=== PATIENT | male | born 1980 | race Two or more races ===

== ENCOUNTER 2018-01-31 21:39 | Inpatient (IN) ==
[2018-02-01] MEDS ORDERED: Aluminum/Magnesium/Simethacone Susp 30 ML UDC PO PRN (02:40)
[2018-02-01] MEDS ORDERED: LORazepam 1 MG Tablet PO PRN (02:40)
[2018-02-01] MEDS ORDERED: Acetaminophen 325 MG Tablet PO PRN (02:40)
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
--- NOTE | 2018-02-01 11:43 | P.CON ---
History of Present Illness Service: [facility] Consult date: 02/01/18 Requesting Physician: Sung Saleem Reason for Consult: Liver CA and UTI Primary Care Provider: No Primary Care Physician Chief Complaint: "I just didn't want to go on anymore" History of Present Illness: 37-year-old male with no significant past medical history up until February of last year when he was diagnosed with liver cancer. Patient originally presented to [place] [facility] under a [place] Act as he had been feeling suicidal. He per documentation patient had lost his kids, business and his apartment and was living in his car. He was transferred to [facility] for further psychiatric evaluation. [facility] consulted due to history of liver cancer and UTI. Patient reports his liver cancer was diagnosed in February 2017 when he had been experiencing abdominal pain and after not having any relief with [id number] medications saw his primary care physician. He had an endoscopy with biopsies taken of his liver which showed cancer. He was evaluated by oncology and started on Opdivo however reports that he has not followed up with his oncologist since about April and has also not been taking his Obdivo as prescribed. Patient reports that he just "didn't want to go on anymore". He tells me that he continues to feel this way now and also mentions trying to wrap sheets around the bars in his bathroom. He denies any pain or discomfort at the moment and reports that he just feels "numb". He denies any fevers, chills, vomiting, shortness of breath, cough, chest pain, headache, dizziness or dysuria. Does endorse some nausea earlier today but no vomiting. Patient also complains of bilateral forearm rash itchy from time to time, states this has been ongoing for several months. No new soaps, lotions, creams, medications, denies being around plants, no bug bites. Discussed evaluation by oncologist to help assist with staging and treatment options if possible while he is in psychiatric department. Patient is agreeable and willing to see the oncologist for recommendations of treatment. We will also request medical records from the physician which patient has provided to me, this was discussed with him. Review of Systems All other systems reviewed negative except as stated in HPI PMF - History History Provided By: Patient, Medical Record - Medical History Medical History: Medical History (Last Reviewed 02/01/18 @ 16:06 by Keily Devine) Liver cancer Suicidal ideation - Surgical History Surgical History: Surgical History (Last Reviewed 02/01/18 @ 16:06 by Keily Devine) H/O eye surgery History of cranioplasty - Family History Family History: Family History (Last Updated 02/01/18 @ 19:07 by Keily Devine) Other Dementia Diabetes mellitus Schizophrenia - Tobacco History Second Hand Smoke Exposure: Yes Tobacco Use In Past 30 Days: Yes Smoking Status: Current every day smoker Tobacco Type: Cigarettes - Alcohol History How Often Do You Have a Drink Containing Alcohol: Never - Substance Use History Substance History: No History of Abuse - Travel History Recent Travel in the [place] Within the Last 8 Weeks: No Recent Travel Out of the Country Within the Last 8 Weeks: No - Immunization History Tetanus Immunization: <5 Years Hx Influenza Vaccine This Season: No Medications and Allergies Active Medications: Active Medications Acetaminophen (Tylenol) 650 mg PO Q4H PRN PRN Reason: Pain 1-5 or Temp >101F Al Hydrox/Mg Hydrox/Simethicone (Mag-Al Plus Susp Liq) 30 ml PO Q6H PRN PRN Reason: DYSPEPSIA Al Hydroxide/Mg Hydroxide (Milk Of Magnesia Liq) 30 ml PO Q12H PRN PRN Reason: Mild Constipation Cephalexin Monohydrate (Keflex) 500 mg PO BID [facility] Stop: 02/07/18 21:01 Last Admin: 02/01/18 08:46 Dose: 500 mg Hydroxyzine HCl (Atarax) 50 mg PO Q6H PRN PRN Reason: ANXIETY Melatonin (Melatonin) 5 mg PO HS PRN PRN Reason: INSOMNIA Mirtazapine (Remeron) 15 mg PO HS [facility] Nicotine (Habitrol 21 Mg Patch.24 Hr) 1 patch T-DERMAL DAILY [facility] Last Admin: 02/01/18 08:46 Dose: 1 patch Allergies Allergy/AdvReac Type Severity Reaction Status Date / Time No Known Allergies Allergy Verified 01/31/18 19:27 Home Medications Medication Instructions Recorded Confirmed Type Po Chemo-[facility] 01/31/18 History Physical Exam Vital signs: Vital Signs 01/31/18 22:43 02/01/18 05:40 Temperature 97.8 F 98 F Pulse Rate 87 77 Respiratory Rate 16 18 Blood Pressure 136/82 142/95 H Pulse Oximetry 97 99 Intake & Output 01/31/18 02/01/18 02/01/18 18:59 06:59 18:59 Weight 118.9 kg Other: Weight On Admission 6 kg Narrative: GENERAL: Well nourished, well developed male resting in bed in no acute distress. SKIN: Warm and dry. Bilateral forearm, dorsal aspect with scattered maculopapular erythema, dry with no drainage. HEAD: Atraumatic. Normocephalic. EYES: Pupils equal and round. No scleral icterus. No injection or drainage. ENT: No nasal bleeding or discharge. Mucous membranes pink and moist. NECK: Trachea midline. No JVD. CARDIOVASCULAR: Regular rate and rhythm. RESPIRATORY: No accessory muscle use. Clear to auscultation. Breath sounds equal bilaterally. GASTROINTESTINAL: Abdomen soft, diffused tenderness left side>right, +BS MUSCULOSKELETAL: Extremities without clubbing, cyanosis, or edema. No obvious deformities. NEUROLOGICAL: Awake and alert. No obvious cranial nerve deficits. Motor grossly within normal limits. Five out of 5 muscle strength in the arms and legs. Normal speech. PSYCHIATRIC: Flat affect, appears depressed. Assessment and Plan - Assessment (1) Liver cancer Code(s): C22.9 - Malignant neoplasm of liver, not specified as primary or secondary Status: Acute (2) UTI (urinary tract infection) Code(s): N39.0 - Urinary tract infection, site not specified Status: Acute (3) Rash Code(s): R21 - Rash and other nonspecific skin eruption Status: Acute - Plan 37-year-old male with no significant past medical history up until February of last year when he was diagnosed with liver cancer. Patient originally presented to [place] ED under a [place] Act as he had been feeling suicidal. He per documentation patient had lost his kids, business and his apartment and was living in his car. He was transferred [facility] inpatient psych for further psychiatric evaluation. [facility] consulted due to history of liver cancer and UTI. Depression, suicidal ideation -Patient to be transferred to higher monitoring unit with one-on-one sitter -Started on Remeron at bedtime -Psych following, greatly appreciate assistance Liver cancer -Previously on Opdivo per his oncologist -Unsure of stage, request medical records from [facility] - Consult ecology for further recommendations, greatly appreciate assistance - ASA and ALT mildly elevated, continue to monitor -Patient denies any pain at current moment Urinary tract infection UA+ Ketones and bacteria with culture indicated. -White count improved, afebrile -Continue p.o. Keflex, UA reintubated, follow culture and sensitivity until final Bilateral hand rash -Ongoing for months per patient -Trial of triamcinolone cream DVT prophylaxis-ambulation Thank you kindly for this consultation, will continue to follow along. Discussed Condition With: Patient and nurse.
[2018-02-01 11:56] LABS: Baso # (Auto) 0.1 th/mm3 (0.0-0.2); Baso % (Auto) 0.8 % (0.0-2.0); Eos # (Auto) 0.4 th/mm3 (0.0-0.4); Eos % (Auto) 4.4 % (0.0-4.0); Hematocrit 41.6 % (39.0-51.0); Hemoglobin 13.9 gm/dL (13.0-17.0); Lymph # (Auto) 2.8 th/mm3 (1.0-4.8); Lymph % (Auto) 28.1 % (9.0-44.0); Mean Corpuscular HGB Conc 33.5 % (32.0-36.0); Mean Corpuscular Hemoglobin 29.1 pg (27.0-34.0); Mean Corpuscular Volume 86.8 fL (80.0-100.0); Mean Platelet Volume 8.5 fL (7.0-11.0); Mono # (Auto) 0.6 th/mm3 (0.0-0.9); Mono % (Auto) 5.9 % (0.0-8.0); Neut # (Auto) 6.1 th/mm3 (1.8-7.7); Neut % (Auto) 60.8 % (16.0-70.0); Platelet Count 250 th/mm3 (150-450); Red Blood Count 4.79 mil/mm3 (4.50-5.90); Red Cell Distribution Width 14.5 % (11.6-17.2); White Blood Count 10.1 th/mm3 (4.0-11.0)
[2018-02-01 12:22] LABS: Albumin 3.7 g/dL (3.4-5.0); Anion Gap 8 meq/L (5-15); Aspartate Aminotransferase 38 U/L (15-37); Blood Urea Nitrogen 6 mg/dL (7-18); Calcium 9.1 mg/dL (8.5-10.1); Carbon Dioxide 25.4 meq/L (21.0-32.0); Chloride 105 meq/L (98-107); Glomerular Filtration Rate Greater Than 89 mL/min (>89); Glucose,Random 81 mg/dL (74-106); Potassium 3.7 meq/L (3.5-5.1); Sodium 138 meq/L (136-145)
[2018-02-01 12:24] LABS: Alanine Aminotransferase 94 U/L (12-78)
[2018-02-01 12:33] LABS: Alkaline Phosphatase 58 U/L (45-117); Total Protein 7.8 g/dL (6.4-8.2)
[2018-02-01] MEDS: Mirtazapine 15 MG Tablet PO SCH (20:44)
[2018-02-01] MEDS: Melatonin 5 MG Tablet PO PRN (20:50)
--- NOTE | 2018-02-01 22:36 | MB ---
cc: Cindy Smith MD DATE: 02/01/2018 CHIEF COMPLAINT: History of liver cancer. HISTORY OF PRESENT ILLNESS: Mr. Porter is a 37-year-old gentleman who presented to the hospital under a [place] Act due to suicidal ideations. Oncology service consulted due to a history of liver cancer. The patient reports that approximately 1 year ago, he had a several-month history of progressively worsening abdominal pain. He was evaluated by a hardware design engineer and underwent an EGD and a colonoscopy. He reports that he underwent a biopsy of a mass in his liver and it returned as cancer. He says that he was evaluated by 2 surgeons who reported that he was not an operative candidate and he has had no further oncology followup. He reports that he has seen a surgeon and a hardware design engineer, but it appears that he has not yet established with an oncologist. He reports that he has been on Opdivo; however, he reports that he does not get this through an oncologist, and interestingly, he describes that he takes 4 nivolumab pills a day; however, this is a medicine that is infused once every 2 weeks or once a month. He does not have a good support system. He reports that he does not talk with his brothers. He is and does not have any contact with his children and he feels that he has nothing else left to live for. During my interview, he casually mentioned that he is on isolation with no bed sheets as he had tried to kill himself at our facility even that morning. REVIEW OF SYSTEMS: As above in HPI, all others negative. PAST MEDICAL HISTORY: History of liver mass. PAST SURGICAL HISTORY: 1. Liver biopsy. 2. Eye surgery. FAMILY HISTORY: No known family history of malignancy. SOCIAL HISTORY: The patient reports that he is an active cigarette smoker. He is not interested in quitting at this time. He denies any alcohol or illegal drug use. CURRENT HOSPITAL MEDICATIONS: Include: 1. Hydrocodone. 2. Tylenol. 3. Keflex. 4. Hydroxyzine. 5. Melatonin. 6. Remeron. 7. Nicotine. 8. Triamcinolone cream. LABORATORY STUDIES: White blood cell count 10, hemoglobin 13.9, platelet count 250,000 with normal absolute blood counts. TSH within normal limits. AST and ALT are both slightly elevated at 38 and 94 respectively. Total bilirubin is 0.4. Creatinine is 0.94. VITAL SIGNS: Temperature 99.4, pulse 85, respiratory rate 17, blood pressure 119/86. General: well developed well nourshed in no distress Head: normocephalic, atraumatic Eyes: PERRLA, EOMI no scleral icterus Respiratory: no respiratory distress MSK: full range of motion Neuro: grossly nonfocal Psych: depressed affect ASSESSMENT AND PLAN: History of liver mass, liver cancer. The patient reports that his biopsy was done at [facility] in [place] under the direction of Dr. Mensah. We will obtain these pathology reports. We will also obtain a repeat CT scan of the chest, abdomen and pelvis. The patient reports the last CT imaging was obtained in approximately 02/2017 Inpatient oncology service will continue to follow. MD MALLY Henderson/bryan , 10:02 PM , 10:09 PM LUNA
--- NOTE | 2018-02-02 10:56 | P.PN ---
Subjective Interval history: Follow-up for liver CA and abdominal pain. Patient is seen and examined in 2700 unit resting in bed comfortably, appears to be in no acute distress. He denies any further pain and agrees that pain medication provided relief. Denies any nausea, vomiting, fevers, chills, shortness of breath or dysuria. Complains of one episode of diarrhea early this morning, no blood reported. Physical Exam Vital signs: Vital Signs 02/01/18 18:51 02/01/18 22:40 02/02/18 05:48 Temperature 99.4 F 97.7 F Pulse Rate 85 64 Respiratory Rate Blood Pressure 119/86 109/62 Pulse Oximetry 97 98 Narrative: GENERAL: Well nourished, well developed male resting in bed in no acute distress. SKIN: Warm and dry. Bilateral forearm, dorsal aspect with scattered maculopapular erythema, dry with no drainage, appear improved compared to yesterday. HEAD: Atraumatic. EYES: Pupils equal and round. ENT: No nasal bleeding or discharge. Mucous membranes pink and moist. NECK: Trachea midline. CARDIOVASCULAR: Regular rate and rhythm. RESPIRATORY: No accessory muscle use. Clear to auscultation. Breath sounds equal bilaterally. GASTROINTESTINAL: Abdomen soft, diffused tenderness, positive bowel sounds. MUSCULOSKELETAL: Extremities without clubbing, cyanosis, or edema. No obvious deformities. NEUROLOGICAL: Awake and alert. No obvious cranial nerve deficits. Motor grossly within normal limits. Normal speech. PSYCHIATRIC: Flat affect, appears depressed. Results - Labs CBC & Chem 7: 02/01/18 11:20 02/01/18 11:20 Laboratory Results - last 24 hr 02/01/18 02/01/18 11:20 11:20 WBC 10.1 RBC 4.79 Hgb 13.9 Hct 41.6 MCV 86.8 MCH 29.1 MCHC 33.5 RDW 14.5 Plt Count 250 MPV 8.5 Neut % (Auto) 60.8 Lymph % (Auto) 28.1 [place] % (Auto) 5.9 Eos % (Auto) 4.4 H Baso % (Auto) 0.8 Neut # (Auto) 6.1 Lymph # (Auto) 2.8 [place] # (Auto) 0.6 Eos # (Auto) 0.4 Baso # (Auto) 0.1 WBC Differential . Differential Comment Auto diff final Sodium 138 Potassium 3.7 Chloride 105 Carbon Dioxide 25.4 Anion Gap 8 BUN 6 L Creatinine 0.94 Estimated GFR Greater than 89 Random Glucose 81 Calcium 9.1 Total Bilirubin 0.4 AST 38 H ALT 94 H Alkaline Phosphatase 58 Total Protein 7.8 Albumin 3.7 TSH 1.260 Assessment and Plan - Assessment (1) Liver cancer Code(s): C22.9 - Malignant neoplasm of liver, not specified as primary or secondary Status: Acute (2) UTI (urinary tract infection) Code(s): N39.0 - Urinary tract infection, site not specified Status: Acute (3) Rash Code(s): R21 - Rash and other nonspecific skin eruption Status: Acute - Plan 37-year-old male with no significant past medical history up until February of last year when he was diagnosed with liver cancer. Patient originally presented to [facility] under a [place] as he had been feeling suicidal. He per documentation patient had lost his kids, business and his apartment and was living in his car. He was transferred to [facility] inpatient psych for further psychiatric evaluation. [facility] consulted due to history of liver cancer and UTI. Depression, suicidal ideation -higher monitoring unit with one-on-one sitter -Psych following, greatly appreciate assistance Liver cancer -Previously on Opdivo per his oncologist -Unsure of stage, request medical records from [facility] - Consult oncology for further recommendations, greatly appreciate assistance -Pending abdominal/pelvis and chest CT scan - ASA and ALT mildly elevated, continue to monitor -PRN [place] for pain Urinary tract infection + Group beta strep UA+ Ketones and bacteria with culture indicated. -White count improved, afebrile -Continue p.o. Keflex, denies dysuria -Diarrhea secondary to p.o. Keflex, will add probiotic. Bilateral hand rash -Ongoing for months per patient -Bilateral forearm rash improved, continue triamcinolone cream DVT prophylaxis-ambulation Discussed Condition With: Patient and nursing staff.
--- NOTE | 2018-02-02 11:47 | P.PNPSY ---
Subjective Chief Complaint: Depression, SI Remarks: Patient seen and examined with nurse. Chart reviewed. Patient is eating well. Case discussed with nursing staff. I was notified by the nurse yesterday evening that there was not adequate staffing to provide 1:1 for patient overnight. I spoke with charge nurse to see if any 1:1 was available who could sit with patient, but there was none. I also brought this staffing shortfall to the attention of the chief warden Dr. Awad in a discussion around 6:30pm yesterday evening. Given this issue, patient was placed in a room with direct line of sight from the nursing station and patient was relieved of any linens to reduce ligature risk. The patient passed an uneventful night and has a 1:1 sitter as ordered this morning. On my examination today, the patient remains exceedingly dysphoric and tearful. He is sitting in the corner of his room. He endorses ongoing SI with intent as before. He says that a female peer reminds him of his daughter, and this is distressing for him given his estrangement from his children. No violent or homicidal ideation reported against this peer or others. When I ask how I can help him best, the patient replies that there is nothing I can do "unless you can end me quickly." Tolerating Remeron well without side effects. No acute physical complaints. Vital Signs Temp Pulse Resp BP Pulse Ox 02/02/18 05:48 97.7 F 64 18 109/62 98 02/01/18 22:40 17 02/01/18 18:51 99.4 F 85 17 119/86 97 Labs reviewed. Review of Systems All other systems reviewed negative except as stated in HPI (limitation: poor historian) Mental Status Examination Appearance: Appropriate Consciousness: Alert Orientation: Person, Place (At least) Motor Activity: Other (No abnormal motor movements noted) Speech: Unremarkable Language: Adequate Fund of Knowledge: Adequate Attention and Concentration: Adequate Memory: Unremarkable (Grossly intact on clinical exam) Mood: Other (Dysphoric) Affect: Other (Tearful) Thought Process & Associations: Intact Thought Content: Appropriate Hallucination Type: None Delusion Type: None Suicidal Ideation: Yes Suicidal Plan: Yes Suicidal Intention: Yes Homicidal Ideation: No Homicidal Plan: No Homicidal Intention: No Insight: Fair Judgment: Impulsive Assessment and Plan - Assessment (1) Adjustment disorder with depressed mood Code(s): F43.21 - Adjustment disorder with depressed mood Status: Acute - Plan Plan: Ongoing persistent dysphoria provides support for depressive episode. I will continue Remeron as ordered for now with plans for further titration to effect. Could consider augmentation (e.g. with lithium or antipsychotic). ECT could be considered but may not be feasible as we do not perform this procedure here and patient is without a payer source to allow for transfer to outside hospital where it could be performed. Hospitalist and oncology input noted and appreciated. Continue one-to-one for safety. Counselor to obtain collateral information. Continue other medications and care as ordered. Justification for Continued Inpatient Stay: Impairment in safety. High risk for decompensation in less restrictive environment. Discharge Planning: Pending psychiatric stabilization. Request Healthcare Surrogate/Guardian Advocate?: No
[2018-02-02] MEDS: Diatrizoate Meglum/Diatrizoate Sod Liq 9 ML UDC PO ONE ×2 (12:26→13:35)
--- NOTE | 2018-02-02 17:31 | CT ---
EXAM DATE: 02/02/2018 5:03 PM EDT AGE/SEX: 37 years / Male INDICATIONS: Liver cancer. Evaluate for metastatic disease. CLINICAL DATA: This is the patient's initial encounter. Patient reports that signs and symptoms have been present for 1 day and indicates a pain score of 0/10. MEDICAL/SURGICAL HISTORY: . Liver cancer None. RADIATION DOSE: 7.89 CTDI (mGy) ; Combined studies COMPARISON: [facility] [place], CT ABDOMEN & PELVIS W CONTRAST, 02/02/2018. . TECHNIQUE: Multiple contiguous axial images were obtained through the chest during bolus infusion of 85 ml Omnipaque 350 (iohexol) nonionic water-soluble contrast as a single exam dose. Images were obtained in suspended respiration using multiple row detector helical technique. Using automated exp osure control and adjustment of the mA and/or kV according to patient size, radiation dose was kept a s low as reasonably achievable to obtain optimal diagnostic quality images. DICOM format image data is available electronically for review and comparison. FINDINGS: Gynecomastia. No pleural or pericardial effusions are seen. There is mild hepatic steatosis. There is no adenopathy in the mediastinum or hilar regions. The osseous structures are intact. Review of lung windows demonstrate clear lungs. CONCLUSION: 1. Gynecomastia and hepatic steatosis. 2. No evidence for metastatic disease to the chest. Electronically signed by: Timo Dodge MD 02/02/2018 5:29 PM EDT
--- NOTE | 2018-02-02 17:32 | CT ---
EXAM DATE: 02/02/2018 5:03 PM EDT AGE/SEX: 37 years / Male INDICATIONS: Liver cancer. Evaluate for metastatic disease. CLINICAL DATA: This is the patient's initial encounter. Patient reports that signs and symptoms have been present for 1 day and indicates a pain score of 0/10. MEDICAL/SURGICAL HISTORY: . Liver cancer None. ORAL CONTRAST: Prescribed oral contrast ingested. RADIATION DOSE: 7.89 CTDI (mGy) ; Combined studies COMPARISON: No prior exams available for comparison. TECHNIQUE: Multiple contiguous axial images were obtained through the abdomen and pelvis following b olus infusion of 85 ml Omnipaque 350 (iohexol) nonionic water-soluble contrast as a single exam dos e. Prescribed oral contrast ingested. Using automated exposure control and adjustment of the mA and/ or kV according to patient size, radiation dose was kept as low as reasonably achievable to obtain op timal diagnostic quality images. DICOM format image data is available electronically for review and comparison. FINDINGS: Lung bases are clear. Osseous structures are intact. No pleural or pericardial effusions are seen. Th ere is mild decreased attenuation of the liver parenchyma characteristic of steatosis. A discrete hep atic mass is not visualized. There is more focal fatty infiltration adjacent to the falciform ligamen t. Gallbladder, kidneys, adrenals, spleen, pancreas are unremarkable. Urinary bladder and prostate ar e unremarkable. No evidence of bowel obstruction. CONCLUSION: 1. Fatty liver. 2. No masses are seen. Electronically signed by: Timo Dodge MD 02/02/2018 5:31 PM EDT
--- NOTE | 2018-02-02 18:16 | ECG ---
Date Performed: 02/01/2018 Time Performed: 13:41:22 PTAGE: 37 years EKG: Sinus rhythm NORMAL ECG NO PREVIOUS TRACING DOCTOR: Tolu Rodriguez Interpretating Date/Time 02/02/2018 18:14:29
[2018-02-02] MEDS: Melatonin 5 MG Tablet PO PRN (20:52)
[2018-02-02] MEDS: Lactobacillus Acidophilus/L. Spores Tablet PO SCH (20:52)
[2018-02-02] MEDS: Mirtazapine 15 MG Tablet PO SCH (20:52)
[2018-02-03] MEDS: Lactobacillus Acidophilus/L. Spores Tablet PO SCH ×2 (09:04→20:36)
--- NOTE | 2018-02-03 10:50 | P.PNPSY ---
Subjective Chief Complaint: Depression, SI Remarks: Patient seen and examined with nurse. Chart reviewed. Records from GI clinic reviewed. Case discussed with nursing staff who reports patient seems a little less dysphoric today. Nurse does wonder about a component of symptom exaggeration or secondary gain, perhaps to evade some sort of legal consequence. Nurse notes that patient's friend Henrry did not come to visit last night as planned, although he did make a phone call to patient today. Patient remains on 1:1 for safety. On my exam, patient is calmer and less dysphoric. He is not tearful today. He presents as somewhat entitled with antisocial personality traits. He is able to speak at length and with great interest on financial matters. He does confirm that there is the potential that he could be charged with wire fraud. He endorses ongoing SI as before and demands discharge. No side effects from medications. He complains of poor sleep, and we discuss (among other options) augmenting patient's Remeron with a sedating atypical, but patient prefers a simple hypnotic. I will add Benadryl. No physical complaints. Vital Signs Temp Pulse Resp BP Pulse Ox 02/03/18 06:21 98.4 F 100 H 17 153/89 H 96 02/02/18 20:00 16 02/02/18 16:49 98.8 F 81 18 135/78 97 Intake and Output 02/03/18 02/03/18 02/03/18 06:59 14:59 22:59 Other: Weight 118.9 kg Laboratory Results - last 24 hr 02/03/18 15:26 Sodium 139 Potassium 3.7 Chloride 106 Carbon Dioxide 25.5 Anion Gap 8 BUN 8 Creatinine 1.01 Estimated GFR 84 L Random Glucose 111 H Calcium 8.6 Total Bilirubin 0.2 AST 42 H ALT 107 H Alkaline Phosphatase 65 Total Protein 7.5 Albumin 3.7 Labs reviewed. Fairly stable transaminitis noted. Review of Systems All other systems reviewed negative except as stated in HPI Mental Status Examination Appearance: Appropriate Consciousness: Alert Orientation: Person, Place (At least) Motor Activity: Other (No motoric abnormalities noted ) Speech: Unremarkable Language: Adequate Fund of Knowledge: Adequate Attention and Concentration: Adequate Memory: Unremarkable (Grossly intact on clinical exam) Mood: Other (Dysphoric) Affect: Blunt Thought Process & Associations: Intact Thought Content: Appropriate Hallucination Type: None Delusion Type: None Suicidal Ideation: Yes Suicidal Plan: Yes Suicidal Intention: Yes Homicidal Ideation: No Homicidal Plan: No Homicidal Intention: No Insight: Fair Judgment: Impulsive Assessment and Plan - Assessment (1) Adjustment disorder with depressed mood Code(s): F43.21 - Adjustment disorder with depressed mood Status: Acute - Plan Plan: Underlying diagnosis remains opaque. There is almost certainly some manipulativeness in patient's presentation, and I suspect his insistence on discharge in the setting of ongoing reported SI is in service of firming up his inpatient placement. In context it is clear that the patient knows full well that he cannot be discharged given his reported current psychiatric symptomatology. I will initiate a petition for involuntary psychiatric hospitalization and consult for second opinion. Patient retains capacity to consent for medication. Add Benadryl as needed for sleep. Continue one-to-one for safety. Continue to monitor on the inpatient unit. Counselor to obtain collateral information. Continue other medications and care as ordered. Justification for Continued Inpatient Stay: Monitoring for impairment in safety. High risk for decompensation in less restrictive environment. Discharge Planning: Pending psychiatric stabilization. Request Healthcare Surrogate/Guardian Advocate?: No
--- NOTE | 2018-02-03 14:10 | P.PN ---
Subjective Interval history: Follow-up visit on reported liver cancer and abdominal pain as well as UTI. Patient seen and examined resting in bed with sitter at bedside appears to be in no acute distress. Patient reports that his abdominal pain continues states that it comes and goes. Denies any further nausea, vomiting or diarrhea. Urinating without any dysuria. No fevers, chills, shortness of breath or cough reported. Physical Exam Vital signs: Vital Signs 02/02/18 16:49 02/02/18 20:00 02/03/18 06:21 Temperature 98.8 F 98.4 F Pulse Rate 81 100 H Respiratory Rate Blood Pressure 135/78 153/89 H Pulse Oximetry 97 96 Intake & Output 02/02/18 02/03/18 02/03/18 18:59 06:59 18:59 Weight 118.9 kg Narrative: GENERAL: Well nourished, well developed male resting in bed in no acute distress. SKIN: Warm and dry. Bilateral forearm, dorsal aspect with scattered maculopapular erythema, improving. HEAD: Atraumatic. EYES: Pupils equal and round. ENT: No nasal bleeding or discharge. Mucous membranes pink and moist. NECK: Trachea midline. CARDIOVASCULAR: Regular rate and rhythm. RESPIRATORY: No accessory muscle use. Clear to auscultation. Breath sounds equal bilaterally. GASTROINTESTINAL: Abdomen soft, diffused tenderness, positive bowel sounds. MUSCULOSKELETAL: Extremities without clubbing, cyanosis, or edema. No obvious deformities. NEUROLOGICAL: Awake and alert. No obvious cranial nerve deficits. Motor grossly within normal limits. Normal speech. PSYCHIATRIC: Flat affect, appears depressed. Results - Labs CBC & Chem 7: 02/01/18 11:20 02/01/18 11:20 - Imaging Impressions Abdomen/Pelvis CT 02/02/18 00:00 CONCLUSION: 1. Fatty liver. 2. No masses are seen. Chest CT 02/02/18 00:00 CONCLUSION: 1. Gynecomastia and hepatic steatosis. 2. No evidence for metastatic disease to the chest. Assessment and Plan - Assessment (1) Liver cancer Code(s): C22.9 - Malignant neoplasm of liver, not specified as primary or secondary Status: Acute (2) UTI (urinary tract infection) Code(s): N39.0 - Urinary tract infection, site not specified Status: Acute (3) Rash Code(s): R21 - Rash and other nonspecific skin eruption Status: Acute - Plan 37-year-old male with no significant past medical history up until February of last year when he was diagnosed with liver cancer. Patient originally presented to [facility] under a [place] as he had been feeling suicidal. He per documentation patient had lost his kids, business and his apartment and was living in his car. He was transferred to [facility] inpatient psych for further psychiatric evaluation. [facility] consulted due to history of liver cancer and UTI. Depression, suicidal ideation -higher monitoring unit with one-on-one sitter -Psych following, greatly appreciate assistance Reported liver cancer -Previously on Opdivo per his oncologist. -Unsure of stage, request medical records from [facility] - Consult oncology for further recommendations, greatly appreciate assistance -Chest CT scan noted with gynecomastia and hepatic steatosis with no evidence of metastatic disease. Abdominal pelvis CT scan with noted fatty liver, no discrete hepatic masses visualized. Gallbladder was unremarkable. -Medical records from [facility] hepatology and gastroenterology report reviewed. Patient was seen by Dr. Mensah 12/23/16 with complaints of abdominal pain , nausea, vomiting, epigastric pain and left upper quadrant abdominal pain as well as constipation. At that time patient reported taking Excedrin almost every day for migraines. Patient underwent EGD was completed on 02/03 with findings of 2 cm hiatus sliding hiatus hernia, LA large be reflux gastritis, clean-based gastric ulcers, erosive gastritis, erosive duodenitis of the bulb. Patient also underwent ultrasound of the abdomen 01/08/17 which found cholelithiasis with multiple stones, gallbladder wall thickness 2 mm in size with no evidence of acute cholelithiasis. Steatosis was noted as well as a hypoechoic mass centrally in the liver with irregular borders measuring 2.9 cm x 1.7 cm x 1.8 cm. This mass was not previously noted on CT and either CT or MRI was recommended at that time per ultrasound reading. He was seen back in office by Dr. Mensah on 01/27/17. His gastric biopsies were negative for H. pylori and recommendations were made to continue PPI for peptic ulcer disease. His symptoms persisted and it was thought these might be related to his cholelithiasis he was referred to a surgeon for further options. -Discussed with patient today my review of medical records. Patient continues to be adamant that he had biopsies done and was told that he needed surgery. He states that he was seen by 2 surgeons but both of them "denied him". When questioned further regarding Opdivo patient reports that he was taking this medication. States that he obtained it from [place], he is not specific as to where he obtain this medication from. When asked further how he knows about this medication he goes on to tell me that his brother told him that this could help with his abdominal pain. -Findings of abdominal CT scan reviewed with patient. At this time there does not seem to be any visualized masses in the liver. I also discussed with patient that the endoscopy biopsies were negative for H. pylori per the medical records. Will start Protonix daily. Discontinue [place], and recheck liver enzymes. Urinary tract infection + Group beta strep UA+ Ketones and bacteria with culture indicated. -White count improved, afebrile -Continue p.o. Keflex, denies dysuria -No further episodes of diarrhea, continue probiotic. Bilateral hand rash -Ongoing for months per patient -Bilateral forearm rash improved, continue triamcinolone cream. DVT prophylaxis-ambulation
--- NOTE | 2018-02-03 14:22 | P.CONPSY ---
Provisional Diagnosis Admission Date: February 01, 2018 00:35 [place] I.: 1. Adjustment disorder with depressed mood Rule-out major depressive episode Rule-out secondary gain for [facility] [place] II.: Deferred History of Present Illness Service: Psychiatry Consult date: 02/03/18 Requesting Physician: Jesús Delatorre Reason for Consult: Second opinion [facility] Primary Care Provider: No Primary Care Physician Chief Complaint: "I just didn't want to go on anymore" History of Present Illness: Patient is a 37-year-old white male admitted to Dr. Jesús Delatorre service under the [place] act. Dr. Delatorre H&P reviewed. Dr. Delatorre assigned first opinion petition supporting [place] act. I agree. Patient meets criteria for involuntary psychiatric hospitalization under the [place] act thus I will cosign second opinion petition supporting [place] act patient seen in his room with nurse Martita and medical student Justin. Patient remains depressed somewhat melancholic with active suicidal ideation and a plan. He states he would take the suicide pill if offered to him. There is a hopelessness and helplessness with him also Review of Systems All other systems reviewed negative except as stated in HPI PMFSH - History History Provided By: Patient, Medical Record - Medical History Medical History: Medical History (Last Reviewed 02/03/18 @ 14:21 by Kirby Jackson MD) Liver cancer Suicidal ideation - Surgical History Surgical History: Surgical History (Last Reviewed 02/03/18 @ 14:21 by Kirby Jackson MD) H/O eye surgery History of cranioplasty - Family History Family History: Family History (Last Reviewed 02/03/18 @ 14:21 by Kirby Jackson MD) Mother Diabetes mellitus Schizophrenia Dementia Father Diabetes mellitus Schizophrenia Mother No problems noted. - Tobacco History Second Hand Smoke Exposure: Yes Tobacco Use In Past 30 Days: Yes Smoking Status: Current every day smoker Tobacco Type: Cigarettes - Alcohol History How Often Do You Have a Drink Containing Alcohol: Never - Substance Use History Substance History: No History of Abuse - Travel History Recent Travel in the [place] Within the Last 8 Weeks: No Recent Travel Out of the Country Within the Last 8 Weeks: No - Immunization History Tetanus Immunization: <5 Years Hx Influenza Vaccine This Season: No Medications and Allergies Active Medications: Active Medications Acetaminophen (Tylenol) 650 mg PO Q4H PRN PRN Reason: Pain 1-5 or Temp >101F Hydrocodone Bitart/Acetaminophen ([place] 5/325) 1 tab PO Q6H PRN PRN Reason: Pain 2-5 Last Admin: 02/02/18 20:53 Dose: 1 tab Hydrocodone Bitart/Acetaminophen ([place] 10/325) 1 tab PO Q6H PRN PRN Reason: Pain 6-10 Last Admin: 02/01/18 21:40 Dose: 1 tab Al Hydrox/Mg Hydrox/Simethicone (Mag-Al Plus Susp Liq) 30 ml PO Q6H PRN PRN Reason: DYSPEPSIA Al Hydroxide/Mg Hydroxide (Milk Of Magnesia Liq) 30 ml PO Q12H PRN PRN Reason: Mild Constipation Cephalexin Monohydrate (Keflex) 500 mg PO BID [facility] Stop: 02/07/18 21:01 Last Admin: 02/03/18 09:04 Dose: 500 mg Diphenhydramine HCl (Benadryl) 50 mg PO HS PRN PRN Reason: INSOMNIA Hydroxyzine HCl (Atarax) 50 mg PO Q6H PRN PRN Reason: ANXIETY Lactobacillus Acidophilus (Lactinex) 1 tab PO BID [facility] Last Admin: 02/03/18 09:04 Dose: 1 tab Mirtazapine (Remeron) 15 mg PO HS [facility] Last Admin: 02/02/18 20:52 Dose: 15 mg Nicotine (Habitrol 21 Mg Patch.24 Hr) 1 patch T-DERMAL DAILY [facility] Last Admin: 02/03/18 09:04 Dose: 1 patch Triamcinolone Acetonide (Aristocort 0.1% Cream) 1 applicatio TOPICAL Q6HR [facility] Last Admin: 02/03/18 09:04 Dose: 1 applicatio Allergies Allergy/AdvReac Type Severity Reaction Status Date / Time No Known Allergies Allergy Verified 01/31/18 19:27 Home Medications Medication Instructions Recorded Confirmed Type Po Chemo-[place] 01/31/18 History Exam Vital signs: Vital Signs 02/02/18 16:49 02/02/18 20:00 02/03/18 06:21 Temperature 98.8 F 98.4 F Pulse Rate 81 100 H Respiratory Rate 18 16 17 Blood Pressure 135/78 153/89 H Pulse Oximetry 97 96 Intake & Output 02/02/18 02/03/18 02/03/18 18:59 06:59 18:59 Weight 118.9 kg Mental Status Examination Appearance: Appropriate Consciousness: Alert Orientation: Person, Place (At least) Motor Activity: Other (No abnormal motor movements noted) Speech: Unremarkable Language: Adequate Fund of Knowledge: Adequate Attention and Concentration: Adequate Memory: Unremarkable (Grossly intact on clinical exam) Mood: Other (Dysphoric) Affect: Other (Tearful) Thought Process & Associations: Intact Thought Content: Appropriate Hallucination Type: None Delusion Type: None Suicidal Ideation: Yes Suicidal Plan: Yes Suicidal Intention: Yes Homicidal Ideation: No Homicidal Plan: No Homicidal Intention: No Insight: Fair Judgment: Impulsive Assessment and Plan - Assessment (1) Adjustment disorder with depressed mood Code(s): F43.21 - Adjustment disorder with depressed mood Status: Acute - Plan Plan: At this time patient meets criteria for involuntary psychiatric hospitalization of the [place] act thus I will cosign second opinion petition supporting [place] act. Patient remains severely depressed with suicidal ideation intent and would take the suicide pill Justification for Continued Inpatient Stay: Patient depressed and suicidal Discharge Planning: To be determined Request Healthcare Surrogate/Guardian Advocate?: No
[2018-02-03 16:06] LABS: Alanine Aminotransferase 107 U/L (12-78); Albumin 3.7 g/dL (3.4-5.0); Anion Gap 8 meq/L (5-15); Aspartate Aminotransferase 42 U/L (15-37); Blood Urea Nitrogen 8 mg/dL (7-18); Calcium 8.6 mg/dL (8.5-10.1); Carbon Dioxide 25.5 meq/L (21.0-32.0); Chloride 106 meq/L (98-107); Glomerular Filtration Rate 84 mL/min (>89); Glucose,Random 111 mg/dL (74-106); Potassium 3.7 meq/L (3.5-5.1); Sodium 139 meq/L (136-145)
[2018-02-03 16:08] LABS: Alkaline Phosphatase 65 U/L (45-117); Total Protein 7.5 g/dL (6.4-8.2)
--- NOTE | 2018-02-03 19:34 | P.PNONC ---
Subjective Interval history: Saw patient sitting at bedside. CT CAP with no evidence of malignancy. Objective Vital Signs/Intake & Output: Vital Signs 02/02/18 20:00 02/03/18 06:21 02/03/18 17:02 Temperature 98.4 F 97.2 F L Pulse Rate 100 H 81 Respiratory Rate 16 17 18 Blood Pressure 153/89 H 153/89 H Pulse Oximetry 96 97 Intake & Output 02/03/18 02/03/18 02/04/18 06:59 18:59 06:59 Weight 118.9 kg Result Diagrams: 02/01/18 11:20 02/03/18 15:26 Laboratory Results: Laboratory Results - last 24 hr 02/03/18 15:26 Sodium 139 Potassium 3.7 Chloride 106 Carbon Dioxide 25.5 Anion Gap 8 BUN 8 Creatinine 1.01 Estimated GFR 84 L Random Glucose 111 H Calcium 8.6 Total Bilirubin 0.2 AST 42 H ALT 107 H Alkaline Phosphatase 65 Total Protein 7.5 Albumin 3.7 Medications: Active Medications Generic Name Dose Route Start Last Admin Trade Name Freq PRN Reason Stop Dose Admin Cephalexin Monohydrate 500 mg 02/01/18 09:00 02/03/18 09:04 Keflex PO 02/07/18 21:01 500 mg BID GERARDO Administration Hydroxyzine HCl 50 mg 02/01/18 10:46 02/03/18 18:40 Atarax PO 50 mg Q6H PRN Administration ANXIETY Lactobacillus Acidophilus 1 tab 02/02/18 21:00 02/03/18 09:04 Lactinex PO 1 tab BID GERARDO Administration Mirtazapine 15 mg 02/01/18 21:00 02/02/18 20:52 Remeron PO 15 mg HS GERARDO Administration Nicotine 1 patch 02/01/18 09:00 02/03/18 09:04 Habitrol 21 Mg Patch.24 Hr T-DERMAL 1 patch DAILY GERARDO Administration Triamcinolone Acetonide 1 applicatio 02/01/18 14:00 02/03/18 12:41 Aristocort 0.1% Cream TOPICAL 02/04/18 21:00 1 applicatio Q6HR GERARDO Administration Objective Remarks: GENERAL: Well-nourished, well-developed patient. HEAD: Normocephalic. EYES: No scleral icterus. No injection or drainage. RESPIRATORY: No accessory muscle use. EXTREMITIES: No cyanosis, or edema. MUSCULOSKELETAL: Adequate muscle tone. NEUROLOGICAL: No obvious focal deficit. Awake, alert, and oriented x3. Assessment/Plan - Plan History of liver mass: No evidence of malignancy on recent imaging. Normal CT of the chest, abdomen and pelvis. Will obtain records from efficiency miner Dr. Mensah. Inpatient oncology service will continue to follow.
[2018-02-03] MEDS: Mirtazapine 15 MG Tablet PO SCH (20:36)
[2018-02-03 22:11] LABS: Hepatitis A IgM Antibody Nonreactive (Nonreactive); Hepatitits B Surface Antigen Nonreactive (Nonreactive)
[2018-02-04] MEDS: Lactobacillus Acidophilus/L. Spores Tablet PO SCH ×2 (09:05→22:15)
[2018-02-04] MEDS: Pantoprazole Sodium 20 MG DR Tablet PO SCH (09:06)
--- NOTE | 2018-02-04 11:24 | P.PNPSY ---
Subjective Chief Complaint: Depression, SI Remarks: Patient seen and examined with nurse. Chart reviewed. Case discussed with nursing staff. No behavioral issues overnight. No reported attempts at self- harm. Case discussed in treatment team. Patient remains on 1:1 for safety. On my examination today, presentation remains somewhat dramatic and manipulative. He tells me that he feels like an "empty shell." He continues to endorse suicidal ideation. In discussing need for ongoing 1:1 supervision, patient says "if there's an opportunity [to self-harm], I'm gonna take it." He also notes "you can't hold me forever." No side effects from medications. No physical complaints. Vital Signs Temp Pulse Resp BP Pulse Ox 02/04/18 06:00 94 H 133/97 H 02/04/18 05:58 98.1 F 78 136/98 H 02/03/18 17:02 97.2 F L 81 18 153/89 H 97 Laboratory Results - last 24 hr 02/03/18 02/03/18 15:26 18:08 Sodium 139 Potassium 3.7 Chloride 106 Carbon Dioxide 25.5 Anion Gap 8 BUN 8 Creatinine 1.01 Estimated GFR 84 L Random Glucose 111 H Calcium 8.6 Total Bilirubin 0.2 AST 42 H ALT 107 H Alkaline Phosphatase 65 Total Protein 7.5 Albumin 3.7 Hepatitis A IgM Ab Nonreactive Hep Bs Antigen Nonreactive Hep B Core IgM Ab Nonreactive Hep C IgG Ab Nonreactive Labs reviewed. Review of Systems All other systems reviewed negative except as stated in HPI Mental Status Examination Appearance: Appropriate Consciousness: Alert Orientation: Person, Place (At least) Motor Activity: Other (No abnormal motor movements noted) Speech: Unremarkable Language: Adequate Fund of Knowledge: Adequate Attention and Concentration: Adequate Memory: Unremarkable (Grossly intact on clinical exam) Mood: Other (Remains dysphoric) Affect: Blunt Thought Process & Associations: Intact Thought Content: Appropriate Hallucination Type: None Delusion Type: None Suicidal Ideation: Yes (Ongoing) Suicidal Plan: Yes Suicidal Intention: Yes Homicidal Ideation: No Homicidal Plan: No Homicidal Intention: No Insight: Fair Judgment: Impulsive Assessment and Plan - Assessment (1) Adjustment disorder with depressed mood Code(s): F43.21 - Adjustment disorder with depressed mood Status: Acute - Plan Plan: Continue to suspect adjustment disorder overlying dramatic/externalizing cluster B personality style, perhaps with a component of secondary gain of avoiding legal consequences and obtaining prison. I will titrate patient's Remeron to 30mg qHS to target dysphoria. Hospitalist and oncology input noted and appreciated. I note that patient's claim of liver cancer has been called into question. Continue 1:1 sitter for safety. I have contacted annual greenhouse manager and my colleague Dr. Saleem to ensure patient will be provided with continuous sitter supervision. Continue to monitor on high acuity unit. Continue other medications and care as ordered. Patient is requesting we reach out to friend Henrry, and I have asked RN to obtain GERALD for Henrry. Justification for Continued Inpatient Stay: Monitoring for impairment in safety. Medication changes. Discharge Planning: Pending further observation. Request Healthcare Surrogate/Guardian Advocate?: No
--- NOTE | 2018-02-04 14:08 | P.PN ---
Subjective Interval history: Follow-up visit for reported liver cancer and transaminitis. Patient seen and examined in 2700 unit on one-on-one supervision. No acute events reported by nursing staff, no pain reported to nurse. Patient denies any nausea, vomiting, diarrhea, fevers, chills, cough, shortness of breath or chest pain. When asked if Protonix helped with epigastric pain, patient shakes his head yes. Does not offer additional input. Physical Exam Vital signs: Vital Signs 02/03/18 17:02 02/04/18 05:58 02/04/18 06:00 Temperature 97.2 F L 98.1 F Pulse Rate 81 78 94 H Respiratory Rate 18 Blood Pressure 153/89 H 136/98 H 133/97 H Pulse Oximetry 97 Narrative: GENERAL: Well nourished, well developed male resting in bed in no acute distress. SKIN: Warm and dry. Bilateral forearm, dorsal aspect with scattered maculopapular erythema, improving. HEAD: Atraumatic. EYES: Pupils equal and round. ENT: No nasal bleeding or discharge. Mucous membranes pink and moist. NECK: Trachea midline. CARDIOVASCULAR: Regular rate and rhythm. RESPIRATORY: No accessory muscle use. Clear to auscultation. Breath sounds equal bilaterally. GASTROINTESTINAL: Abdomen soft, diffused tenderness, positive bowel sounds. MUSCULOSKELETAL: Extremities without clubbing, cyanosis, or edema. No obvious deformities. NEUROLOGICAL: Awake and alert. No obvious cranial nerve deficits. Motor grossly within normal limits. Normal speech. PSYCHIATRIC: Flat affect, appears depressed. Results - Labs CBC & Chem 7: 02/01/18 11:20 02/03/18 15:26 Laboratory Results - last 24 hr 02/03/18 02/03/18 15:26 18:08 Sodium 139 Potassium 3.7 Chloride 106 Carbon Dioxide 25.5 Anion Gap 8 BUN 8 Creatinine 1.01 Estimated GFR 84 L Random Glucose 111 H Calcium 8.6 Total Bilirubin 0.2 AST 42 H ALT 107 H Alkaline Phosphatase 65 Total Protein 7.5 Albumin 3.7 Hepatitis A IgM Ab Nonreactive Hep Bs Antigen Nonreactive Hep B Core IgM Ab Nonreactive Hep C IgG Ab Nonreactive Assessment and Plan - Assessment (1) Liver cancer Code(s): C22.9 - Malignant neoplasm of liver, not specified as primary or secondary Status: Acute (2) UTI (urinary tract infection) Code(s): N39.0 - Urinary tract infection, site not specified Status: Acute (3) Rash Code(s): R21 - Rash and other nonspecific skin eruption Status: Acute - Plan 37-year-old male with no significant past medical history up until February of last year when he was diagnosed with liver cancer. Patient originally presented to [place] ED under a [place] as he had been feeling suicidal. He per documentation patient had lost his kids, business and his apartment and was living in his car. He was transferred to [facility] inpatient psych for further psychiatric evaluation. [facility] consulted due to history of liver cancer and UTI. Depression, suicidal ideation -higher monitoring unit with one-on-one sitter -Psych following, greatly appreciate assistance Reported liver cancer -Previously on Opdivo per his oncologist. -Unsure of stage, request medical records from [facility] - Consult oncology for further recommendations, greatly appreciate assistance -Chest CT scan noted with gynecomastia and hepatic steatosis with no evidence of metastatic disease. Abdominal pelvis CT scan with noted fatty liver, no discrete hepatic masses visualized. Gallbladder was unremarkable. -Medical records from [facility] hepatology and gastroenterology report reviewed. Patient was seen by Dr. Mensah 12/23/16 with complaints of abdominal pain , nausea, vomiting, epigastric pain and left upper quadrant abdominal pain as well as constipation. At that time patient reported taking Excedrin almost every day for migraines. Patient underwent EGD was completed on 02/03 with findings of 2 cm hiatus sliding hiatus hernia, LA large be reflux gastritis, clean-based gastric ulcers, erosive gastritis, erosive duodenitis of the bulb. Patient also underwent ultrasound of the abdomen 01/08/17 which found cholelithiasis with multiple stones, gallbladder wall thickness 2 mm in size with no evidence of acute cholelithiasis. Steatosis was noted as well as a hypoechoic mass centrally in the liver with irregular borders measuring 2.9 cm x 1.7 cm x 1.8 cm. This mass was not previously noted on CT and either CT or MRI was recommended at that time per ultrasound reading. He was seen back in office by Dr. Mensah on 01/27/17. His gastric biopsies were negative for H. pylori and recommendations were made to continue PPI for peptic ulcer disease. His symptoms persisted and it was thought these might be related to his cholelithiasis he was referred to a surgeon for further options. -Discussed with patient today my review of medical records. Patient continues to be adamant that he had biopsies done and was told that he needed surgery. He states that he was seen by 2 surgeons but both of them "denied him". When questioned further regarding Opdivo patient reports that he was taking this medication. States that he obtained it from [place], he is not specific as to where he obtain this medication from. When asked further how he knows about this medication he goes on to tell me that his brother told him that this could help with his abdominal pain. -Findings of abdominal CT scan reviewed with patient. At this time there does not seem to be any visualized masses in the liver. I also discussed with patient that the endoscopy biopsies were negative for H. pylori per the medical records. -Continue p.o. Protonix, can follow-up with GI as outpatient. Transaminitis, mild -Hepatitis panel negative, transaminitis likely secondary to hepatic steatosis. Lifestyle changes discussed with patient. Urinary tract infection + Group beta strep UA+ Ketones and bacteria with culture indicated. -White count improved, afebrile -Continue p.o. Keflex, denies dysuria -No further episodes of diarrhea, continue probiotic. Bilateral hand rash -Ongoing for months per patient -Bilateral forearm rash improved, and due to triamcinolone cream entered. DVT prophylaxis-ambulation HH H will sign off. Please reconsult if needed. Discussed Condition With: Patient and RN
[2018-02-04] MEDS: Mirtazapine 15 MG Tablet PO SCH (22:16)
[2018-02-05] MEDS: Pantoprazole Sodium 20 MG DR Tablet PO SCH (09:18)
[2018-02-05] MEDS: Lactobacillus Acidophilus/L. Spores Tablet PO SCH ×2 (09:18→22:21)
--- NOTE | 2018-02-05 15:13 | P.PNPSY ---
Subjective Chief Complaint: Depression, SI Remarks: Pt seen and discussed with staff. Chart reviewed. He was admitted for suicidal ideation and is on 1:1 and in camera room due to plan to hang himself. He states that he remains depressed and he is "done". He states that he is disappointed that plan to hang himself failed. No HI. Mental Status Examination Appearance: Appropriate Consciousness: Alert Orientation: Person, Place (At least) Motor Activity: Other (No abnormal motor movements noted) Speech: Unremarkable Language: Adequate Fund of Knowledge: Adequate Attention and Concentration: Adequate Memory: Unremarkable (Grossly intact on clinical exam) Mood: Other (Remains dysphoric) Affect: Blunt Thought Process & Associations: Intact Thought Content: Appropriate Hallucination Type: None Delusion Type: None Suicidal Ideation: Yes (Ongoing) Suicidal Plan: Yes (hanging self) Suicidal Intention: Yes Homicidal Ideation: No Homicidal Plan: No Homicidal Intention: No Insight: Fair Judgment: Impulsive Assessment and Plan - Assessment (1) Adjustment disorder with depressed mood Code(s): F43.21 - Adjustment disorder with depressed mood Status: Acute - Plan Plan: C Continue 1:1 sitter for safety. Continue to monitor on high acuity unit. Continue current medications. Justification for Continued Inpatient Stay: impairments in safety- Request Healthcare Surrogate/Guardian Advocate?: No
[2018-02-05] MEDS: Mirtazapine 15 MG Tablet PO SCH (22:21)
[2018-02-06] MEDS: Lactobacillus Acidophilus/L. Spores Tablet PO SCH ×2 (08:42→21:09)
[2018-02-06] MEDS: Pantoprazole Sodium 20 MG DR Tablet PO SCH (09:16)
--- NOTE | 2018-02-06 10:41 | P.PNPSY ---
Subjective Chief Complaint: Depression, SI Remarks: Chart reviewed and discussed with nursing staff. Patient is in his room and remains 1:1 in a camera room. Patient endorses that he has been homeless for approximately 2 months and that he is very depressed. He stated he is suicidal , but could not articulate a plan. He is currently 1:1 because he attempted to hang himself with a bed sheet on the 2600 hallway. Patient is medication compliant. Eating well. States he has trouble maintaining sleep, but is not requesting any medications. Mental Status Examination Appearance: Appropriate Consciousness: Alert Orientation: Person, Place (At least) Motor Activity: Other (No abnormal motor movements noted) Speech: Unremarkable Language: Adequate Fund of Knowledge: Adequate Attention and Concentration: Adequate Memory: Unremarkable (Grossly intact on clinical exam) Mood: Other (Remains dysphoric) Affect: Blunt Thought Process & Associations: Intact Thought Content: Appropriate Hallucination Type: None Delusion Type: None Suicidal Ideation: Yes (Ongoing) Suicidal Plan: Yes (hanging self) Suicidal Intention: Yes Homicidal Ideation: No Homicidal Plan: No Homicidal Intention: No Insight: Fair Judgment: Impulsive Assessment and Plan - Assessment (1) Adjustment disorder with depressed mood Code(s): F43.21 - Adjustment disorder with depressed mood Status: Acute - Plan Plan: C Continue 1:1 sitter for safety. Continue to monitor on high acuity unit. Continue current medications. Justification for Continued Inpatient Stay: Moving patient to a less restrictive environment may result in his decompensation. Request Healthcare Surrogate/Guardian Advocate?: No
[2018-02-06] MEDS: Mirtazapine 15 MG Tablet PO SCH (21:09)
[2018-02-07] MEDS: Pantoprazole Sodium 20 MG DR Tablet PO SCH (09:29)
[2018-02-07] MEDS: Lactobacillus Acidophilus/L. Spores Tablet PO SCH ×2 (09:29→20:26)
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
[2018-02-07] MEDS: Mirtazapine 15 MG Tablet PO SCH (20:26)
[2018-02-08 06:10] VITALS: BP 147/86; PULSE 66; RESP 18; TEMP 97.6; O2SAT 98
[2018-02-08] MEDS: Pantoprazole Sodium 20 MG DR Tablet PO SCH (08:37)
[2018-02-08] MEDS: Lactobacillus Acidophilus/L. Spores Tablet PO SCH (08:38)
--- NOTE | 2018-02-08 10:38 | P.TTN ---
- Patient Problems Problems: 1. Discharge planning 2. Medication compliance 3. Knowledge deficit 4. Lack of coping skills - Progress Toward Goals Provider Present: Dr. Nathaly Delatorre (Patient meets criteria for discharge.) Psychiatric Counselors Present: Link Ryder Jr., [facility] (Counselor has arranged [facility] to provide transport to the patient's residence in the [facility]. Patient will follow up with [facility] for all psychiatric care.) Group Spec/RT/OT/FLAHERTY Present: KRYSTINA Dominguez (Patient does not attend groups, and remained seclusive to his room) - Documentation Teaching Recipient: Patient
--- NOTE | 2018-02-08 12:17 | P.DSPSY ---
Psychiatry Discharge Summary Inpatient Psychiatric care?: Yes Advance Directives: No Mental Health Advance Directive: No Health Care Proxy: No - Admission Admission Date: February 01, 2018 00:35 - Admission Diagnosis (1) Adjustment disorder with depressed mood Code(s): F43.21 - Adjustment disorder with depressed mood Brief History: Mr. Porter is a 37-year-old male with a reported history of depression who presents in transfer from [facility] under a [place] [facility]. He presented to the ED voluntarily and told the ED provider he had been feeling suicidal for 1 week, reporting that "'he lost everything', he lost his , kids, business, he also has lost his apartment and currently lives in his car, he does not take any medications for depression, he is also noncompliant with his liver cancer medications and states he supposed to take it 4 times a day but is only been taking it twice". Reviewing the electronic medical record, I see no previous psychiatric contact within our system. Patient seen and examined with nurse. Chart reviewed. Case discussed with nursing staff. Patient noted to be dysphoric. Case discussed with treatment team. On my examination today, patient is tearful and withdrawn. He describes his mood as "pissed off" and he elaborates to say that he has been looking around his room for some way to hurt himself but has not been successful and so is feeling frustrated. In context, this disclosure seems potentially manipulative (perhaps in service of establishing, very early in the interview, that he is experiencing symptoms to be regarded as severe and requiring inpatient hospitalization). He continues to verbalize suicidal ideation and says that he is "just trying to figure out a way" to hurt himself on the unit. I have discussed the matter with nurse and charge nurse, and patient will be moved ROSLYN to high acuity unit, camera room, and placed with 1:1 sitter for safety. Patient tells me that he is feeling depressed and has no reason to live , having the several losses elaborated to ED provider, above. He endorses worthless feelings. His sleep and appetite are poor. I can elicit no current hypomanic or manic symptoms, nor does the patient give any history of previous episodes of hypomania or sb. He has no audiovisual hallucinations, and I can elicit no delusional material. The remainder of the psychiatric ROS is negative. The patient complains of rash on bilateral forearms and hands and will be seen by the hospitalist today. No other physical complaints. Tobacco Use In Past 30 Days: Yes How Often Do You Have a Drink Containing Alcohol: Never Hospital Course: Patient was admitted to a locked, inpatient psychiatric unit. A general medical consultation was obtained. An oncology consultation was obtained. Appropriate precautions were in place throughout patient's hospital stay. Patient was seen and examined on the unit by psychiatry and also visited by counselor. Psychotropic medications were adjusted. Patient tolerated medication changes well without side effects. There was no evidence of suicidal or homicidal behavior on the inpatient unit, even after discontinuation of one-to-one sitter. There was no evidence of significant self -care deficit from mental illness. Collateral information was obtained from the patient's ex-girlfriend's brother. On the day of discharge: Patient seen and examined with counselor and nurse. Chart reviewed. Case discussed with nursing staff who reports patient spoke with ex-mindi last night. He is noted to be manipulative by nursing staff , and he is suspected of exaggerating his depressive symptomatology. He once again was reportedly flirting with the nursing staff. Case discussed in treatment team. On my examination today, the patient is requesting discharge from the inpatient psychiatric unit today. He says of his conversation with ex- girlfriend last night "I got closure." He reports that ex-galinaiend was "not very nice" in there conversation, and patient says that he has come to the realization that he does not want to be with someone like that. He tells me that he wants to restart his life. 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 He denies any suicidal or homicidal ideation, intent or plan. He denies any urge to violence or retribution against his ex-girlfriend. I can elicit no depressive or hypomanic/ manic symptoms. His affect is notably brighter today. He has no audiovisual hallucinations, and I can elicit no delusional material. There is no evidence of impairment in reality construction. He has no side effects from medications , nor does he have any reported physical complaints. Weighing the relevant factors and based on the available evidence, I public affairs officer that the patient no longer meets criteria for involuntary psychiatric hospitalization. There is no evidence of imminent risk of harm to self or others at this point, nor is there evidence of self-care deficit to substantiate involuntary psychiatric hospitalization. The patient is requesting discharge from the inpatient psychiatric unit today, and I have no basis to retain him over his objection. With the benefit of observation, it seems clear that presenting psychiatric distress was in no small part secondary to estrangement from ex-girlfriend, and there may have been an attention- seeking component to his presentation here. This distress is now evidently resolved. The patient also does have underlying cluster B personality traits that make him chronically unpredictable with respect to risk for harm, but these traits would not be ameliorated by a longer inpatient psychiatric hospital stay. The patient will be discharged today with psychiatric follow-up as arranged by counselor. Patient is also to follow up with primary care and with GI. I have counseled the patient regarding warning signs for need to return to the psychiatric emergency room as part of a general safety plan. - Discharge Discharge Date: 02/08/18 - Discharge Diagnosis (1) Adjustment disorder with depressed mood Diagnosis: Principal Code(s): F43.21 - Adjustment disorder with depressed mood Status: Resolved Discharge Disposition: Home - Discharge Instructions Discharge Diet: Regular Diet Activities You Can Perform: Weight Bearing As Tolerat - Discharge Time > 30 minutes Mental Status Examination Appearance: Appropriate Consciousness: Alert Orientation: x4 Motor Activity: Other (No abnormal motor movements noted) Speech: Unremarkable Language: Adequate Fund of Knowledge: Adequate Attention and Concentration: Adequate Memory: Unremarkable (Grossly intact on clinical exam) Mood: Appropriate Affect: Appropriate Thought Process & Associations: Intact, Logical, Goal directed, Linear Thought Content: Appropriate Hallucination Type: None Delusion Type: None Suicidal Ideation: No Suicidal Plan: No Suicidal Intention: No Homicidal Ideation: No Homicidal Plan: No Homicidal Intention: No Insight: Fair Judgment: Impulsive (Likely chronically impulsive as a consequence of personality style) Discharge/Advance Care Plan - Results Vital Signs: Last Vital Signs Temp 97.6 F 02/08/18 06:09 Pulse 66 02/08/18 06:09 Resp 18 02/08/18 10:29 BP 147/86 H 02/08/18 06:09 Pulse Ox 98 02/08/18 06:09 Lab Results: Abnormal Lab Results 02/08/18 06:27 POC Glucose 172 H Laboratory Results TSH 1.260 uIU/mL (0.358-3.740) 02/01/18 11:20 Summary of Procedures: None done Imaging: ITS Impressions Abdomen/Pelvis CT 02/02/18 00:00 CONCLUSION: 1. Fatty liver. 2. No masses are seen. Chest CT 02/02/18 00:00 CONCLUSION: 1. Gynecomastia and hepatic steatosis. 2. No evidence for metastatic disease to the chest. Pending Results: None - Medications Number of antipsychotic medications at discharge: 0 - Discharge Care Plan Goals to Promote Your Health: * To prevent worsening of your condition and complications * To maintain your health at the optimal level Directions to Meet Your Goals: Take your medications as prescribed Follow your dietary instruction Follow activity as directed Keep your appointments as scheduled Take your immunizations and boosters as scheduled If your symptoms worsen call your PCP, if no PCP go to Urgent Care Center or Emergency Room For 09/11 questions related to your inpatient stay or results of tests pending at discharge, please contact Dr. Jesús Delatorre MD at [phone] Smoking is Dangerous to Your Health. Avoid second hand smoking
== END 2018-02-08 12:50 | disposition home or self-care (01) ==
LOC: NEPD 21:39 → NEDA 02-01 00:35 → H260 02-01 01:03 → H270 02-01 13:02
PROVIDERS: ADMIT Psychiatry & Neurology Psychiatry; ATTEND Psychiatry & Neurology Psychiatry